=== PATIENT | female | born 1940 | race Caucasian/White ===

== ENCOUNTER 2024-06-02 04:19 | Emergency (ER) | payer MEDICARE, MEDICAID ==
[2024-06-02] MEDS ORDERED: Prochlorperazine 10 MG/2 ML VIAL ONE (04:37)
[2024-06-02 04:47] LABS: #Basophils 0.05 10x3/uL (0.0-0.2); #Eosinophils 0.05 10x3/uL (0.0-0.5); #Monocytes 0.59 10x3/uL (0.0-1.1); #Neutrophils 15.19 10x3/uL (1.5-8.4); %Basophils 0.3 % (0.0-2.0); %Eosinophils 0.3 % (0.0-6.0); %Lymphocytes 4.9 % (18.0-47.0); %Monocytes 3.5 % (0.0-10.0); %Neutrophils 90.5 % (40.0-75.0); Hematocrit 38.3 % (34.9-44.5); Mean Corpuscular HGB CONC 31.3 g/dL (32.0-36.0); Mean Corpuscular Hemoglobin 28.4 pg (27.0-33.0); Mean Corpuscular Volume 90.5 fL (81.6-98.3); Mean Platelet Volume 10.5 fL (7.4-10.4); Platelet Count 220 10x3/uL (150-450); RBC Distribution Width 17.5 % (11.5-14.5); Red Blood Cell (RBC) Count 4.23 10x6/uL (3.90-5.03)
[2024-06-02 05:04] LABS: ALT (SGPT) 44 U/L (Less than 34); AST (SGOT) 74 U/L (11-34); Albumin 3.1 g/dL (3.1-4.5); Alkaline Phosphatase 172 U/L (40-110); Anion Gap 17 mmol/L (10-20); BUN (Urea Nitrogen) 26 mg/dL (9.8-20.1); Bilirubin, Total 0.6 mg/dL (0.3-1.2); Calc. Creatinine Clearance 0 mL/min (70-130); Calcium 8.7 mg/dL (7.8-10.44); Carbon Dioxide 20 mmol/L (23-31); Chloride 106 mmol/L (98-107); Estimated GFR 18; Globulin 3.7 g/dL (2.4-3.5); Glucose 232 mg/dL (83-110); Lipase 24 U/L (8-78); Magnesium 2.1 mg/dL (1.6-2.6); Potassium 5.2 mmol/L (3.5-5.1); Protein, Total 6.8 g/dL (5.8-8.1); Sodium 138 mmol/L (136-145)
[2024-06-02 05:08] LABS: Phosphorus 3.6 mg/dL (2.5-4.5)
[2024-06-02 05:10] LABS: Troponin I 0.015 ng/mL (< 0.028)
[2024-06-02 05:21] LABS: Bilirubin Neg (Negative); Blood, Urine 50 (Negative); Clarity Cloudy (Clear); Glucose, Urine (Dipstick) 250 mg/dL (Negative); Ketone, Urine Negative (Negative); Leukocyte 500 (Negative); Nitrite Negative (Negative); Protein, Urine (Dipstick) 500 mg/dl (Neg-Trace); Urobilinogen Normal mg/dL (Less than 2)
[2024-06-02 05:41] LABS: Bacteria/HPF 4+ HPF (None Seen); CAUTI Indications for Culture Alt mental st,lethar; Squamous Epithelial 0-3 HPF (0-3); WBC/HPF Greater Than 50 HPF (0-3)
[2024-06-02 05:42] LABS: Transitional Epithelial 0-3 HPF (None Seen)
[2024-06-02 05:43] LABS: Urine Culture Reflex Yes Yes
[2024-06-02] MEDS ORDERED: Atorvastatin Calcium 40 MG TAB ONE (06:35)
[2024-06-02] MEDS ORDERED: NIFEdipine XL 30 MG ER.TAB ONE (06:35)
[2024-06-02] MEDS ORDERED: Amiodarone 200 MG TAB ONE (06:35)
[2024-06-02] MEDS ORDERED: Piperacillin/Tazobactam 4.5 GM VIAL ONE (07:27)
[2024-06-02 07:32] LABS: Troponin I 0.019 ng/mL (< 0.028)
== END 2024-06-02 10:50 ==
LOC: CSHERS 04:19
DX: K80.20 Calculus of gallbladder without cholecystitis without obstruction (principal); N39.0 Urinary tract infection, site not specified; I12.0 Hypertensive chronic kidney disease with stage 5 chronic kidney disease or end stage renal disease; E11.22 Type 2 diabetes mellitus with diabetic chronic kidney disease; N18.6 End stage renal disease; E78.5 Hyperlipidemia, unspecified; Z79.4 Long term (current) use of insulin; Z79.899 Other long term (current) drug therapy; Z86.718 Personal history of other venous thrombosis and embolism; Z99.2 Dependence on renal dialysis; Z79.01 Long term (current) use of anticoagulants
CPT/HCPCS: 71045; 74176; 76705; 80053; 81001; 83690; 83735; 83880; 84100; 84484 ×2; 85025; 87077; 87086; 93005; J0780; J2543; 36415; 87186; 96365; 96375

== ENCOUNTER 2024-06-20 01:37 | Emergency (ER) | payer MEDICARE, MEDICAID ==
[2024-06-20 03:11] LABS: #Basophils 0.07 10x3/uL (0.0-0.2); #Eosinophils 0.06 10x3/uL (0.0-0.5); #Monocytes 1.15 10x3/uL (0.0-1.1); #Neutrophils 10.68 10x3/uL (1.5-8.4); %Basophils 0.5 % (0.0-2.0); %Eosinophils 0.4 % (0.0-6.0); %Lymphocytes 16.3 % (18.0-47.0); %Neutrophils 74.2 % (40.0-75.0); Hematocrit 31.5 % (34.9-44.5); Hemoglobin 9.7 g/dL (12.0-15.5); Mean Corpuscular HGB CONC 30.8 g/dL (32.0-36.0); Mean Corpuscular Hemoglobin 28.3 pg (27.0-33.0); Mean Corpuscular Volume 91.8 fL (81.6-98.3); Mean Platelet Volume 9.9 fL (7.4-10.4); Platelet Count 161 10x3/uL (150-450); RBC Distribution Width 18.2 % (11.5-14.5); Red Blood Cell (RBC) Count 3.43 10x6/uL (3.90-5.03); White Blood Cell (WBC) Count 14.38 10x3/uL (3.5-10.5)
[2024-06-20] MEDS ORDERED: Aspirin Chewable 81 MG TAB ONE (03:23)
[2024-06-20 03:27] LABS: ALT (SGPT) 13 U/L (Less than 34); AST (SGOT) 16 U/L (11-34); Alkaline Phosphatase 131 U/L (40-110); Anion Gap 15 mmol/L (10-20); BUN (Urea Nitrogen) 37 mg/dL (9.8-20.1); Bilirubin, Total 0.5 mg/dL (0.3-1.2); Calc. Creatinine Clearance 0 mL/min (70-130); Calcium 8.5 mg/dL (7.8-10.44); Carbon Dioxide 20 mmol/L (23-31); Chloride 103 mmol/L (98-107); Estimated GFR 13; Globulin 3.6 g/dL (2.4-3.5); Glucose 151 mg/dL (83-110); Lipase 6 U/L (8-78); Magnesium 1.9 mg/dL (1.6-2.6); Potassium 4.5 mmol/L (3.5-5.1); Protein, Total 6.6 g/dL (5.8-8.1); Sodium 133 mmol/L (136-145)
[2024-06-20 03:33] LABS: Troponin I 0.028 ng/mL (< 0.028)
[2024-06-20] MEDS ORDERED: Azithromycin 500 MG VIAL ONE (04:38)
[2024-06-20] MEDS ORDERED: cefTRIAXone (ROCEPHIN) 2 GM VIAL ONE (04:39)
[2024-06-20] MEDS ORDERED: Nitroglycerin 2% Ointment 1 INCH/1 GM Packet ONE (04:39)
== END 2024-06-20 08:37 | disposition short-term general hospital (02) ==
LOC: CSHERS 01:37
DX: J18.9 Pneumonia, unspecified organism (principal); J90 Pleural effusion, not elsewhere classified; I12.0 Hypertensive chronic kidney disease with stage 5 chronic kidney disease or end stage renal disease; N18.6 End stage renal disease; E11.22 Type 2 diabetes mellitus with diabetic chronic kidney disease; I25.10 Atherosclerotic heart disease of native coronary artery without angina pectoris; D63.1 Anemia in chronic kidney disease; E78.5 Hyperlipidemia, unspecified; Z95.5 Presence of coronary angioplasty implant and graft; Z79.01 Long term (current) use of anticoagulants; Z79.899 Other long term (current) drug therapy; Z79.4 Long term (current) use of insulin; Z99.2 Dependence on renal dialysis
CPT/HCPCS: 71045; 80053; 83605; 83690; 83735; 83880; 84484; 85025; 85379; 87040; 93005; J0456; J0696; 96365; 96375